=== PATIENT | female | born 1935 | race Caucasian/White ===

== ENCOUNTER 2017-04-07 11:12 | Inpatient (IN) | payer MEDICARE, OTHER ==
[~2017-04-07] VITALS: Ht 162.6 cm; Wt 92.2 kg
[~2017-04-07 11:12] MED LIST: ASPI-496 PO; ATOR20TA9 PO; CARV3.122 PO; CHOL10003 PO; HYDR-3138 PO; LEVO150T PO; LISI-170 PO; MULT-717 PO; POLY17PO5 PO
[2017-04-07] MEDS ORDERED: SODIUM CHLORIDE 0.9% 1,000 ML IV ONE (11:32)
[2017-04-07] MEDS ORDERED: DICL100G8 TP (11:47)
[2017-04-07] MEDS ORDERED: ALBU90AE INH (11:47)
[2017-04-07] MEDS ORDERED: SODIUM CHLORIDE FLUSH 10ML SYR IVF ONE (12:00)
[2017-04-07 12:06] LABS: ASPARTATE AMINO TRANSFERASE 27 U/L (15-37); BLOOD UREA NITROGEN 13 mg/dL (7-18)
[2017-04-07] MEDS ORDERED: CEFTAROLINE 600 MG in SODIUM CHLORIDE 0.9% 100 ML IV ONE (13:30)
[2017-04-07] MEDS ORDERED: ENALAPRILAT 1.25 MG/ML, 2ML IVPush PRN (14:30)
[2017-04-07] MEDS ORDERED: BISACODYL 10 MG SUPP PR PRN (14:30)
[2017-04-07] MEDS ORDERED: ONDANSETRON 2MG/ML, 2ML IVPush PRN (14:30)
[2017-04-07] MEDS ORDERED: VANCOMYCIN PER PHARMACY MC PRN (14:30)
[2017-04-07] MEDS ORDERED: LABETALOL 5MG/ML, 20ML IVPush PRN (14:30)
[2017-04-07] MEDS ORDERED: ACETAMINOPHEN 325 MG TABLET PO PRN (14:30)
[2017-04-07] MEDS: morphine SULFATE 10 MG/ML, 1ML IVPush PRN ×2 (15:00→16:03)
[2017-04-07] MEDS ORDERED: PHARMACOKINETIC MONITORING MC PRN (15:00)
[2017-04-07] MEDS: HYDROcodone/APAP 5/325 TABLET PO PRN ×2 (18:39→22:54)
[2017-04-07 19:08] VITALS: BP 153/80
[2017-04-07] MEDS: CEFTRIAXONE PMX 1GM/50ML 50 ML IV SCH (19:51)
[2017-04-07] MEDS: CARVEDILOL 3.125 MG TABLET PO SCH (21:30)
[2017-04-07] MEDS: ATORVASTATIN 20 MG TABLET PO SCH (21:30)
[2017-04-07] MEDS: VANCOMYCIN 1,700 MG in SODIUM CHLORIDE 0.9% 250 ML IV SCH (21:30)
[2017-04-08 02:00] VITALS: BP 111/64
[2017-04-08] MEDS: LEVOTHYROXINE 150 MCG TABLET PO SCH (05:58)
[2017-04-08] MEDS: HYDROcodone/APAP 5/325 TABLET PO PRN ×3 (05:58→18:34)
[2017-04-08 06:19] LABS: ASPARTATE AMINO TRANSFERASE 23 U/L (15-37); BLOOD UREA NITROGEN 16 mg/dL (7-18)
[2017-04-08 07:03] VITALS: BP 120/68
[2017-04-08] MEDS: CARVEDILOL 3.125 MG TABLET PO SCH ×2 (10:09→20:20)
[2017-04-08] MEDS: LISINOPRIL 20 MG TABLET PO SCH (10:09)
[2017-04-08] MEDS: SENNA/DOCUSATE TABLET PO SCH (10:09)
[2017-04-08 14:33] VITALS: BP 126/72
[2017-04-08 19:55] VITALS: BP 117/76
[2017-04-08] MEDS: ATORVASTATIN 20 MG TABLET PO SCH (20:20)
[2017-04-08] MEDS: CEFTRIAXONE PMX 1GM/50ML 50 ML IV SCH (20:20)
[2017-04-09] MEDS: HYDROcodone/APAP 5/325 TABLET PO PRN ×4 (00:28→18:43)
[2017-04-09 01:00] VITALS: BP 128/77
[2017-04-09 06:06] LABS: BLOOD UREA NITROGEN 17 mg/dL (7-18)
[2017-04-09] MEDS: LEVOTHYROXINE 150 MCG TABLET PO SCH (06:11)
[2017-04-09 08:32] VITALS: BP 140/66
[2017-04-09] MEDS: SENNA/DOCUSATE TABLET PO SCH (09:00)
[2017-04-09] MEDS: VANCOMYCIN 1,700 MG in SODIUM CHLORIDE 0.9% 250 ML IV SCH (09:14)
[2017-04-09] MEDS: CARVEDILOL 3.125 MG TABLET PO SCH ×2 (09:15→20:17)
[2017-04-09] MEDS: LISINOPRIL 20 MG TABLET PO SCH (09:15)
[2017-04-09 14:42] VITALS: BP 114/72
[2017-04-09] MEDS: ATORVASTATIN 20 MG TABLET PO SCH (20:17)
[2017-04-09] MEDS: CEFTRIAXONE PMX 1GM/50ML 50 ML IV SCH (20:18)
[2017-04-09 20:51] VITALS: BP 116/61
[2017-04-10 01:08] VITALS: BP 117/70
[2017-04-10] MEDS: HYDROcodone/APAP 5/325 TABLET PO PRN (01:51)
[2017-04-10] MEDS: LEVOTHYROXINE 150 MCG TABLET PO SCH (05:29)
[2017-04-10 06:23] LABS: ASPARTATE AMINO TRANSFERASE 20 U/L (15-37); BLOOD UREA NITROGEN 13 mg/dL (7-18)
[2017-04-10] MEDS ORDERED: PROPOFOL 10 MG/ML, 20ML ONE (07:36)
[2017-04-10] MEDS ORDERED: ROCURONIUM 10 MG/ML ONE (07:36)
[2017-04-10] MEDS ORDERED: ONDANSETRON 2MG/ML, 2ML ONE (07:36)
[2017-04-10] MEDS ORDERED: OXYcodone 5 MG/5 ML ORAL.SOL UDC PO PRN (08:30)
[2017-04-10] MEDS ORDERED: MIDAZOLAM 1 MG/ML, 2ML IV PRN (08:30)
[2017-04-10] MEDS ORDERED: ONDANSETRON 2MG/ML, 2ML IVPush PRN (08:30)
[2017-04-10] MEDS ORDERED: FENTANYL PF 100 MCG/2ML IV PRN (08:30)
[2017-04-10] MEDS ORDERED: ACETAMINOPHEN 325 MG TABLET PO PRN (08:30)
[2017-04-10] MEDS: CARVEDILOL 3.125 MG TABLET PO SCH ×2 (09:00→20:51)
[2017-04-10] MEDS: LISINOPRIL 20 MG TABLET PO SCH (09:00)
[2017-04-10] MEDS: SENNA/DOCUSATE TABLET PO SCH (09:00)
[2017-04-10] MEDS ORDERED: HYDROmorphone 2 MG/ML, 1ML ONE (11:38)
[2017-04-10] MEDS: HYDROmorphone 1 MG/ML, 1ML IV PRN ×2 (11:55→12:15)
[2017-04-10 13:05] VITALS: BP 133/83
[2017-04-10] MEDS: D5%-0.9% NACL+KCL 20MEQ 1,000 ML IV SCH (15:48)
[2017-04-10 20:36] VITALS: BP 147/74
[2017-04-10] MEDS: CEFTRIAXONE PMX 1GM/50ML 50 ML IV SCH (20:41)
[2017-04-10] MEDS: ATORVASTATIN 20 MG TABLET PO SCH (22:00)
[2017-04-10] MEDS: VANCOMYCIN 1,700 MG in SODIUM CHLORIDE 0.9% 250 ML IV SCH (22:00)
[2017-04-10 23:53] VITALS: BP 119/55
[2017-04-11 02:46] VITALS: BP 110/47
[2017-04-11] MEDS: D5%-0.9% NACL+KCL 20MEQ 1,000 ML IV SCH (03:54)
[2017-04-11 05:17] LABS: BLOOD UREA NITROGEN 15 mg/dL (7-18)
[2017-04-11] MEDS: LEVOTHYROXINE 150 MCG TABLET PO SCH (07:18)
[2017-04-11 07:22] VITALS: BP 108/64
[2017-04-11 07:38] VITALS: BP 136/66
[2017-04-11] MEDS: SENNA/DOCUSATE TABLET PO SCH (08:13)
[2017-04-11] MEDS: CARVEDILOL 3.125 MG TABLET PO SCH ×2 (08:13→23:37)
[2017-04-11] MEDS: LISINOPRIL 20 MG TABLET PO SCH (08:13)
[2017-04-11] MEDS: HYDROcodone/APAP 5/325 TABLET PO PRN ×3 (12:31→23:37)
[2017-04-11] MEDS ORDERED: DIAZEPAM 5 MG TABLET ONE (13:04)
[2017-04-11 14:05] VITALS: BP 99/44
[2017-04-11] MEDS: DIAZEPAM 5 MG/ML, 2ML IV PRN (18:06)
[2017-04-11 19:44] VITALS: BP 101/64
[2017-04-11] MEDS: DOCUSATE 100 MG CAPSULE PO PRN (23:37)
[2017-04-11] MEDS: ATORVASTATIN 20 MG TABLET PO SCH (23:38)
[2017-04-11] MEDS: CEFTRIAXONE PMX 1GM/50ML 50 ML IV SCH (23:40)
[2017-04-12 01:00] VITALS: BP 139/83
[2017-04-12] MEDS: DIAZEPAM 5 MG/ML, 2ML IV PRN ×3 (03:41→20:48)
[2017-04-12] MEDS: HYDROcodone/APAP 5/325 TABLET PO PRN ×5 (04:11→22:18)
[2017-04-12 06:07] LABS: BLOOD UREA NITROGEN 16 mg/dL (7-18)
[2017-04-12] MEDS: LEVOTHYROXINE 150 MCG TABLET PO SCH (07:12)
[2017-04-12] MEDS: VANCOMYCIN 1,700 MG in SODIUM CHLORIDE 0.9% 250 ML IV SCH (08:26)
[2017-04-12] MEDS: SENNA/DOCUSATE TABLET PO SCH (09:00)
[2017-04-12 09:09] VITALS: BP 133/47
[2017-04-12] MEDS: CHOLECALCIFEROL 1,000 UNIT TABLET PO SCH (09:49)
[2017-04-12] MEDS: CARVEDILOL 3.125 MG TABLET PO SCH ×2 (09:49→20:34)
[2017-04-12] MEDS: LISINOPRIL 20 MG TABLET PO SCH (09:49)
[2017-04-12] MEDS: MULTIVITAMIN 1 TABLET PO SCH (09:49)
[2017-04-12] MEDS: POLYETHYLENE GLYCOL 17 GM PACKET PO PRN (09:53)
[2017-04-12 13:48] VITALS: BP 135/61
[2017-04-12] MEDS: ATORVASTATIN 20 MG TABLET PO SCH (20:34)
[2017-04-12] MEDS: CEFTRIAXONE PMX 1GM/50ML 50 ML IV SCH (20:35)
[2017-04-12] MEDS: DOCUSATE 100 MG CAPSULE PO PRN (20:36)
[2017-04-12 21:14] VITALS: BP 112/68
[2017-04-13 01:08] VITALS: BP 99/63
[2017-04-13] MEDS: HYDROcodone/APAP 5/325 TABLET PO PRN ×6 (02:24→23:06)
[2017-04-13 04:05] VITALS: BP 103/65
[2017-04-13] MEDS: LEVOTHYROXINE 150 MCG TABLET PO SCH (06:24)
[2017-04-13 07:54] VITALS: BP 109/67
[2017-04-13] MEDS: SENNA/DOCUSATE TABLET PO SCH (08:53)
[2017-04-13] MEDS: CHOLECALCIFEROL 1,000 UNIT TABLET PO SCH (08:53)
[2017-04-13] MEDS: MULTIVITAMIN 1 TABLET PO SCH (08:53)
[2017-04-13] MEDS: CARVEDILOL 3.125 MG TABLET PO SCH ×2 (08:54→20:30)
[2017-04-13] MEDS: POLYETHYLENE GLYCOL 17 GM PACKET PO PRN (09:40)
[2017-04-13 14:39] VITALS: BP 114/66
[2017-04-13] MEDS: LISINOPRIL 20 MG TABLET PO SCH (15:01)
[2017-04-13] MEDS: DIAZEPAM 5 MG/ML, 2ML IV PRN (17:35)
[2017-04-13 19:37] VITALS: BP 114/71
[2017-04-13] MEDS: CEFTRIAXONE PMX 1GM/50ML 50 ML IV SCH (20:30)
[2017-04-13] MEDS: ATORVASTATIN 20 MG TABLET PO SCH (20:30)
[2017-04-14] MEDS: HYDROcodone/APAP 5/325 TABLET PO PRN ×6 (02:45→23:35)
[2017-04-14 03:09] VITALS: BP_SYST 111; BP_SYST 95; BP_DIAS 36; BP_DIAS 44
[2017-04-14 05:29] LABS: BLOOD UREA NITROGEN 18 mg/dL (7-18)
[2017-04-14] MEDS: SENNA/DOCUSATE TABLET PO SCH (07:38)
[2017-04-14] MEDS: LISINOPRIL 20 MG TABLET PO SCH (07:39)
[2017-04-14] MEDS: CHOLECALCIFEROL 1,000 UNIT TABLET PO SCH (07:39)
[2017-04-14] MEDS: MULTIVITAMIN 1 TABLET PO SCH (07:39)
[2017-04-14] MEDS: LEVOTHYROXINE 150 MCG TABLET PO SCH (07:39)
[2017-04-14] MEDS: CARVEDILOL 3.125 MG TABLET PO SCH ×2 (07:39→19:50)
[2017-04-14 07:40] VITALS: BP 114/60
[2017-04-14] MEDS ORDERED: MAGNESIUM HYDROXIDE 8%, 30ML UDC PO PRN (11:30)
[2017-04-14 13:48] VITALS: BP 128/58
[2017-04-14 19:09] VITALS: BP 106/67
[2017-04-14] MEDS: CEFTRIAXONE PMX 1GM/50ML 50 ML IV SCH (19:49)
[2017-04-14] MEDS: ATORVASTATIN 20 MG TABLET PO SCH (19:49)
[2017-04-15 02:08] VITALS: BP 95/60
[2017-04-15] MEDS: HYDROcodone/APAP 5/325 TABLET PO PRN ×5 (03:44→20:55)
[2017-04-15 06:24] LABS: BLOOD UREA NITROGEN 23 mg/dL (7-18)
[2017-04-15] MEDS: LEVOTHYROXINE 150 MCG TABLET PO SCH (06:40)
[2017-04-15 07:00] VITALS: BP 122/71
[2017-04-15] MEDS: CHOLECALCIFEROL 1,000 UNIT TABLET PO SCH (07:35)
[2017-04-15] MEDS: SENNA/DOCUSATE TABLET PO SCH (07:36)
[2017-04-15] MEDS: MULTIVITAMIN 1 TABLET PO SCH (07:36)
[2017-04-15] MEDS: CARVEDILOL 3.125 MG TABLET PO SCH ×2 (07:41→20:56)
[2017-04-15 07:42] VITALS: BP 124/50
[2017-04-15] MEDS: LISINOPRIL 20 MG TABLET PO SCH (09:00)
[2017-04-15] MEDS: DIAZEPAM 5 MG/ML, 2ML IV PRN (11:26)
[2017-04-15 13:05] VITALS: BP 108/68
[2017-04-15 20:15] VITALS: BP 100/53
[2017-04-15] MEDS: CEFTRIAXONE 1,000 MG in SODIUM CHLORIDE 0.9% 50 ML IVPB SCH (20:54)
[2017-04-15] MEDS: ATORVASTATIN 20 MG TABLET PO SCH (20:55)
[2017-04-16] MEDS: HYDROcodone/APAP 5/325 TABLET PO PRN ×6 (01:25→21:35)
[2017-04-16 04:35] VITALS: BP 116/69
[2017-04-16] MEDS: LEVOTHYROXINE 150 MCG TABLET PO SCH (05:41)
[2017-04-16 06:14] LABS: BLOOD UREA NITROGEN 25 mg/dL (7-18)
[2017-04-16 07:18] VITALS: BP 116/58
[2017-04-16] MEDS: CHOLECALCIFEROL 1,000 UNIT TABLET PO SCH (08:41)
[2017-04-16] MEDS: SENNA/DOCUSATE TABLET PO SCH ×2 (08:41→08:44)
[2017-04-16] MEDS: CARVEDILOL 3.125 MG TABLET PO SCH ×2 (08:41→20:16)
[2017-04-16] MEDS: MULTIVITAMIN 1 TABLET PO SCH (08:41)
[2017-04-16] MEDS ORDERED: DIAZEPAM 5 MG TABLET PO PRN (09:00)
[2017-04-16 13:11] VITALS: BP 131/66
[2017-04-16] MEDS: LISINOPRIL 20 MG TABLET PO SCH (13:32)
[2017-04-16 19:00] VITALS: BP 99/62
[2017-04-16] MEDS: CEFTRIAXONE 1,000 MG in SODIUM CHLORIDE 0.9% 50 ML IVPB SCH (20:16)
[2017-04-16] MEDS: ATORVASTATIN 20 MG TABLET PO SCH (20:16)
[2017-04-17] MEDS: HYDROcodone/APAP 5/325 TABLET PO PRN ×6 (01:56→21:36)
[2017-04-17 02:19] VITALS: BP 102/41
[2017-04-17 05:33] LABS: BLOOD UREA NITROGEN 28 mg/dL (7-18)
[2017-04-17] MEDS: LEVOTHYROXINE 150 MCG TABLET PO SCH (05:43)
[2017-04-17 07:21] VITALS: BP 112/70
[2017-04-17] MEDS: CARVEDILOL 3.125 MG TABLET PO SCH ×2 (09:36→21:37)
[2017-04-17] MEDS: MULTIVITAMIN 1 TABLET PO SCH (09:36)
[2017-04-17] MEDS: LISINOPRIL 20 MG TABLET PO SCH (09:36)
[2017-04-17] MEDS: SENNA/DOCUSATE TABLET PO SCH (09:37)
[2017-04-17] MEDS: CHOLECALCIFEROL 1,000 UNIT TABLET PO SCH (09:37)
[2017-04-17] MEDS ORDERED: POLY17PO5 PO (11:01)
[2017-04-17] MEDS ORDERED: CHOL10003 PO (11:01)
[2017-04-17] MEDS ORDERED: MULT1TAB60 PO (11:01)
[2017-04-17 13:37] VITALS: BP 119/69
[2017-04-17] MEDS: CEFAZOLIN PMX 2GM/50ML 50 ML IV SCH (17:42)
[2017-04-17 18:43] VITALS: BP 100/64
[2017-04-17] MEDS: ATORVASTATIN 20 MG TABLET PO SCH (21:36)
[2017-04-18] MEDS: CEFAZOLIN PMX 2GM/50ML 50 ML IV SCH ×3 (01:31→17:41)
[2017-04-18] MEDS: HYDROcodone/APAP 5/325 TABLET PO PRN ×6 (01:31→21:35)
[2017-04-18 01:47] VITALS: BP 127/62
[2017-04-18 05:25] LABS: ASPARTATE AMINO TRANSFERASE 66 U/L (15-37); BLOOD UREA NITROGEN 28 mg/dL (7-18)
[2017-04-18] MEDS: LEVOTHYROXINE 150 MCG TABLET PO SCH (05:29)
[2017-04-18 07:07] VITALS: BP 128/56
[2017-04-18] MEDS: MULTIVITAMIN 1 TABLET PO SCH (09:57)
[2017-04-18] MEDS: LISINOPRIL 20 MG TABLET PO SCH (09:57)
[2017-04-18] MEDS: CHOLECALCIFEROL 1,000 UNIT TABLET PO SCH (09:57)
[2017-04-18] MEDS: CARVEDILOL 3.125 MG TABLET PO SCH ×2 (09:58→21:35)
[2017-04-18] MEDS: SENNA/DOCUSATE TABLET PO SCH (10:02)
[2017-04-18 15:34] VITALS: BP 86/44
[2017-04-18 17:11] VITALS: BP 116/51
[2017-04-18 20:58] VITALS: BP 102/53
[2017-04-18] MEDS: ATORVASTATIN 20 MG TABLET PO SCH (21:35)
[2017-04-19] MEDS: HYDROcodone/APAP 5/325 TABLET PO PRN ×3 (01:24→09:30)
[2017-04-19] MEDS: CEFAZOLIN PMX 2GM/50ML 50 ML IV SCH ×2 (01:24→09:29)
[2017-04-19 02:45] VITALS: BP 102/48
[2017-04-19] MEDS: LEVOTHYROXINE 150 MCG TABLET PO SCH (05:28)
[2017-04-19 05:29] LABS: BLOOD UREA NITROGEN 30 mg/dL (7-18)
[2017-04-19] MEDS: SENNA/DOCUSATE TABLET PO SCH (09:00)
[2017-04-19] MEDS: MULTIVITAMIN 1 TABLET PO SCH (09:29)
[2017-04-19] MEDS: CHOLECALCIFEROL 1,000 UNIT TABLET PO SCH (09:29)
[2017-04-19] MEDS: LISINOPRIL 20 MG TABLET PO SCH (09:29)
[2017-04-19] MEDS: CARVEDILOL 3.125 MG TABLET PO SCH (09:29)
[2017-04-19] MEDS ORDERED: CEFA1VIA2 IV (09:36)
[2017-04-19 09:41] VITALS: BP 112/56
== END 2017-04-19 11:48 | DRG 515 ==
LOC: ED 13:07 → EDIP 13:30 → 3NE 14:25 → 4NOR 04-10 12:28
PROVIDERS: ADMIT Internal Medicine; ATTEND Internal Medicine
PROC: 01NR0ZZ Release Sacral Nerve, Open Approach (ICD-10-PCS; 2017-04-10)
PROC: 01NB0ZZ Release Lumbar Nerve, Open Approach (ICD-10-PCS; principal; 2017-04-10 07:30)
DX: M48.06 Spinal stenosis, lumbar region (principal); E43 Unspecified severe protein-calorie malnutrition; I69.354 Hemiplegia and hemiparesis following cerebral infarction affecting left non-dominant side; E87.1 Hypo-osmolality and hyponatremia; M54.16 Radiculopathy, lumbar region; L89.150 Pressure ulcer of sacral region, unstageable; D64.9 Anemia, unspecified; E03.9 Hypothyroidism, unspecified; E78.5 Hyperlipidemia, unspecified; G89.29 Other chronic pain; I10 Essential (primary) hypertension; I73.9 Peripheral vascular disease, unspecified; R33.9 Retention of urine, unspecified; Z66 Do not resuscitate; Z96.643 Presence of artificial hip joint, bilateral; Z96.652 Presence of left artificial knee joint; E66.9 Obesity, unspecified; D63.8 Anemia in other chronic diseases classified elsewhere; Z74.01 Bed confinement status; Z79.82 Long term (current) use of aspirin; Z79.899 Other long term (current) drug therapy; Z88.0 Allergy status to penicillin; Z88.2 Allergy status to sulfonamides; Z88.5 Allergy status to narcotic agent; Z68.34 Body mass index [BMI] 34.0-34.9, adult
CPT/HCPCS: 36415; 71010; 72100; 80048; 80053; 80202; 82040; 83735; 84443; 85025; 85610; 85730; 87070; 87077; 87186; 87205; 93005; 96360; J0690; J0696; J0712; J1170; J2250; J2270; J2405; J2704; J3010; J3360; J3370; J3480; J7030; J7050

== ENCOUNTER 2019-04-14 15:26 | Inpatient (IN) | payer MEDICARE ==
[~2019-04-14] VITALS: Ht 162.6 cm; Wt 86.0 kg
[~2019-04-14 15:26] MED LIST changes: +ALBU90AE INH; +ATOR20TA37 PO; -ATOR20TA9 PO; +CEFA1VIA2 IV; +DICL100G19 TP; -HYDR-3138 PO; +HYDR-3237 PO; +MULT1TAB60 PO
--- NOTE | 2019-04-14 15:26 | NUR ---
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 Drainage and chills noted on Monday.
--- NOTE | 2019-04-14 15:30 | NUR ---
Dr. Zuniga at bedside to evaluate pt.
[2019-04-14] MEDS ORDERED: CEFTRIAXONE PMX 1GM/50ML 50 ML IV ONE (16:30)
[2019-04-14] MEDS ORDERED: VANCOMYCIN PER PHARMACY MC PRN ×2 (16:30→17:30)
[2019-04-14] MEDS ORDERED: VANCOMYCIN 1,700 MG in SODIUM CHLORIDE 0.9% 250 ML IV ONE (16:30)
--- NOTE | 2019-04-14 16:33 | NUR ---
Lab at bedside for BC draw. Pt's family members now at bedside.
[2019-04-14 17:00] LABS: BASOPHILS # (AUTO) 0.02 x10^3/uL (0-0.1); BASOPHILS % (AUTO) 0 % (0-1); EOSINOPHILS # (AUTO) 0.01 x10^3/uL (0-0.4); EOSINOPHILS % (AUTO) 0 % (1-7); LYMPHOCYTES # (AUTO) 0.51 x10^3/uL (1-3.4); LYMPHOCYTES % (AUTO) 3 % (22-44); MD NO; MEAN CORPUSCULAR HEMOGLOBIN 33.5 pg (27.0-34.8); MEAN CORPUSCULAR HGB CONC 32.9 g/dL (32.4-35.8); MEAN PLATELET VOLUME 8.1 fL (7.4-10.4); MONOCYTES % (AUTO) 6 % (2-9); NEUTROPHILS # (AUTO) 15.51 x10^3/uL (1.8-6.8); NEUTROPHILS % (AUTO) 91 % (42-75); PLATELET COUNT 198 x10^3/uL (130-400); RED BLOOD COUNT 3.87 x10^6/uL (3.82-5.3); RED CELL DISTRIBUTION WIDTH 12.3 % (9.6-15.2)
[2019-04-14 17:13] LABS: ALBUMIN 3.1 g/dL (3.4-5.0); ANION GAP 8 mmol/L (5-15); CALCIUM 9.1 mg/dL (8.5-10.1); CHLORIDE 103 mmol/L (98-107)
[2019-04-14 17:14] LABS: CREATININE 0.88 mg/dL (0.55-1.02)
--- NOTE | 2019-04-14 17:17 | NUR ---
IV ABX started after 2 sets of blood cultures drawn and armband noted.
--- NOTE | 2019-04-14 17:21 | NUR ---
Upon MD arrival in to room to evaluate pt, pt's HR noted to have increased from 90s to 120s. EKG done.
[2019-04-14] MEDS ORDERED: hydrALAzine 20 MG/ML, 1ML IVPush PRN (17:30)
[2019-04-14] MEDS ORDERED: OXYcodone IR 5MG TABLET PO PRN (17:30)
[2019-04-14] MEDS ORDERED: SODIUM CHLORIDE 0.9% 1,000ML IVBOLUS ONE (17:30)
[2019-04-14] MEDS ORDERED: ONDANSETRON 2MG/ML, 2ML IVPush PRN ×2 (17:30→21:30)
[2019-04-14 17:44] LABS: INTERNATIONAL NORMALIZED RATIO 1.03 (0.93-1.1); PROTHROMBIN TIME 10.8 Seconds (9.6-11.5)
--- NOTE | 2019-04-14 18:04 | NUR ---
Telephone SBAR report given to R[place]ia, OR. Pt and family made aware of plan to go to OR, Dr. Tran at bedside to discuss surgery. Pt returned to NSR, rate in the 90s, all MDs aware of episode of increased HR and plan for NS bolus and artur-operative monitoring.
[2019-04-14] MEDS ORDERED: BUPIVACAINE/PF-EPI 0.5% 1:200K ONE (18:14)
--- NOTE | 2019-04-14 18:15 | NUR ---
Pt to OR at this time, with tech.
[2019-04-14] MEDS ORDERED: FENTANYL PF 100 MCG/2ML ONE (18:17)
[2019-04-14] MEDS ORDERED: MEPERIDINE/PF 25MG/0.5ML IVPush PRN (19:00)
[2019-04-14] MEDS ORDERED: OXYcodone 5 MG/5 ML ORAL.SOL UDC PO PRN (19:00)
[2019-04-14] MEDS ORDERED: PROCHLORPERAZINE 5 MG/ML, 2ML IV PRN (19:00)
[2019-04-14] MEDS ORDERED: hydrALAzine 20 MG/ML, 1ML IV PRN (19:00)
[2019-04-14] MEDS ORDERED: LABETALOL 5MG/ML, 20ML IV PRN (19:00)
[2019-04-14] MEDS ORDERED: HALOPERIDOL 5 MG/ML IV PRN (19:00)
[2019-04-14] MEDS ORDERED: PROMETHAZINE 25 MG/ML, 1ML IV PRN (19:00)
[2019-04-14] MEDS ORDERED: DIPHENHYDRAMINE 50 MG/ML, 1ML IVPush PRN (19:00)
[2019-04-14] MEDS ORDERED: HYDROmorphone 2 MG/ML, 1ML IVPush PRN (19:00)
[2019-04-14] MEDS ORDERED: METOPROLOL 1 MG/ML, 5ML IV PRN (19:00)
[2019-04-14] MEDS ORDERED: FENTANYL PF 100 MCG/2ML IV PRN (19:00)
[2019-04-14] MEDS ORDERED: SUCCINYLCHOLINE 20 MG/ML, 10ML ONE (19:30)
[2019-04-14] MEDS ORDERED: NEOSTIGMINE 1 MG/ML, 10ML ONE (19:30)
[2019-04-14] MEDS ORDERED: ROCURONIUM 10MG/ML,5ML ONE (19:30)
[2019-04-14] MEDS ORDERED: PROPOFOL 10 MG/ML, 20ML ONE (19:30)
[2019-04-14] MEDS ORDERED: ONDANSETRON 2MG/ML, 2ML ONE (19:30)
[2019-04-14] MEDS ORDERED: CEFAZOLIN 1,000 MG ONE (19:30)
[2019-04-14] MEDS ORDERED: DEXAMETHASONE 4 MG/ML, 1ML ONE (19:30)
[2019-04-14] MEDS ORDERED: GLYCOPYRROLATE 0.2MG/1ML, 5ML ONE (19:30)
[2019-04-14] MEDS ORDERED: ACETAMINOPHEN 650 MG/20.3 ML UDC ONE (19:57)
[2019-04-14] MEDS ORDERED: OXYcodone 5 MG/5 ML ORAL.SOL UDC ONE (19:57)
[2019-04-14 20:45] VITALS: BP 101/52
[2019-04-14] MEDS ORDERED: CARVEDILOL 3.125 MG TABLET PO SCH (21:00)
[2019-04-14] MEDS: ATORVASTATIN 20 MG TABLET PO SCH (21:00)
[2019-04-14] MEDS ORDERED: PHARMACOKINETIC MONITORING MC PRN (21:30)
[2019-04-14] MEDS ORDERED: PHARMACOKINETIC CONSULTATION MC ONE (21:30)
[2019-04-14] MEDS ORDERED: morphine SULFATE 10 MG/ML, 1ML IVPush PRN (21:30)
[2019-04-14] MEDS: CEFTRIAXONE PMX 2GM/50ML 50 ML IV SCH (21:58)
[2019-04-15 00:14] VITALS: BP 102/64
[2019-04-15] MEDS: ACETAMINOPHEN 325 MG TABLET PO PRN ×2 (00:40→21:56)
[2019-04-15 03:59] VITALS: BP 97/61
[2019-04-15] MEDS: LEVOTHYROXINE 150 MCG TABLET PO SCH (05:52)
[2019-04-15 06:20] LABS: MEAN CORPUSCULAR HEMOGLOBIN 33.9 pg (27.0-34.8); MEAN CORPUSCULAR HGB CONC 33.3 g/dL (32.4-35.8); MEAN CORPUSCULAR VOLUME 101.8 fL (80-100); MEAN PLATELET VOLUME 8.2 fL (7.4-10.4); PLATELET COUNT 206 x10^3/uL (130-400); RED CELL DISTRIBUTION WIDTH 12.1 % (9.6-15.2)
[2019-04-15 06:40] LABS: CHLORIDE 103 mmol/L (98-107)
[2019-04-15 06:47] VITALS: BP 94/56
[2019-04-15 06:56] LABS: BASOPHILS # (AUTO) 0.01 x10^3/uL (0-0.1); BASOPHILS % (AUTO) 0 % (0-1); EOSINOPHILS % (AUTO) 0 % (1-7); LYMPHOCYTES # (AUTO) 0.44 x10^3/uL (1-3.4); LYMPHOCYTES % (AUTO) 3 % (22-44); MD SCAN; MONOCYTES # (AUTO) 0.26 x10^3/uL (0.2-0.8); MONOCYTES % (AUTO) 2 % (2-9); NEUTROPHILS # (AUTO) 14.54 x10^3/uL (1.8-6.8); NEUTROPHILS % (AUTO) 95 % (42-75)
[2019-04-15 06:58] LABS: ALANINE AMINOTRANSFERASE 26 U/L (12-78); ALBUMIN 2.5 g/dL (3.4-5.0); ALKALINE PHOSPHATASE 108 U/L (45-117); ANION GAP 10 mmol/L (5-15); BILIRUBIN,TOTAL 0.7 mg/dL (0.2-1.0); CALCIUM 8.4 mg/dL (8.5-10.1); CREATININE 1.11 mg/dL (0.55-1.02); TOTAL PROTEIN 6.1 g/dL (6.4-8.2)
[2019-04-15] MEDS: MULTIVITAMIN 1 TABLET PO SCH (08:13)
[2019-04-15] MEDS: CHOLECALCIFEROL 1,000 UNIT TABLET PO SCH (08:13)
[2019-04-15] MEDS ORDERED: LISINOPRIL 20 MG TABLET PO SCH (09:00)
[2019-04-15] MEDS ORDERED: morphine SULFATE 10 MG/ML, 1ML IVPush PRN (11:00)
[2019-04-15 12:22] VITALS: BP 101/67
[2019-04-15] MEDS: METOPROLOL TARTRATE 25 MG TABLET PO SCH ×2 (18:00→18:36)
[2019-04-15 18:33] VITALS: BP 129/66
[2019-04-15] MEDS: ATORVASTATIN 20 MG TABLET PO SCH (21:16)
[2019-04-15] MEDS: CEFTRIAXONE PMX 2GM/50ML 50 ML IV SCH (21:56)
[2019-04-16 02:13] VITALS: BP 143/74
[2019-04-16] MEDS ORDERED: VANCOMYCIN 1,700 MG in SODIUM CHLORIDE 0.9% 250 ML IV SCH (05:00)
[2019-04-16] MEDS: METOPROLOL TARTRATE 25 MG TABLET PO SCH (05:18)
[2019-04-16] MEDS: LEVOTHYROXINE 150 MCG TABLET PO SCH (05:18)
[2019-04-16 05:27] LABS: BASOPHILS # (AUTO) 0.01 x10^3/uL (0-0.1); BASOPHILS % (AUTO) 0 % (0-1); EOSINOPHILS % (AUTO) 0 % (1-7); LYMPHOCYTES # (AUTO) 1.02 x10^3/uL (1-3.4); LYMPHOCYTES % (AUTO) 7 % (22-44); MD NO; MEAN CORPUSCULAR HEMOGLOBIN 33.5 pg (27.0-34.8); MEAN CORPUSCULAR HGB CONC 33.1 g/dL (32.4-35.8); MEAN CORPUSCULAR VOLUME 101.2 fL (80-100); MEAN PLATELET VOLUME 8.1 fL (7.4-10.4); MONOCYTES # (AUTO) 0.61 x10^3/uL (0.2-0.8); MONOCYTES % (AUTO) 4 % (2-9); NEUTROPHILS % (AUTO) 89 % (42-75); PLATELET COUNT 264 x10^3/uL (130-400); RED BLOOD COUNT 3.73 x10^6/uL (3.82-5.3); RED CELL DISTRIBUTION WIDTH 12.3 % (9.6-15.2)
[2019-04-16 05:33] LABS: ALBUMIN 2.5 g/dL (3.4-5.0); ANION GAP 6 mmol/L (5-15); CALCIUM 8.7 mg/dL (8.5-10.1); CHLORIDE 102 mmol/L (98-107)
[2019-04-16 05:39] LABS: ALANINE AMINOTRANSFERASE 76 U/L (12-78); ALKALINE PHOSPHATASE 110 U/L (45-117); BILIRUBIN,TOTAL 0.2 mg/dL (0.2-1.0); CREATININE 0.88 mg/dL (0.55-1.02); TOTAL PROTEIN 6.2 g/dL (6.4-8.2)
[2019-04-16] MEDS ORDERED: DIPHENHYDRAMINE 25 MG CAPSULE ONE (06:43)
[2019-04-16] MEDS ORDERED: DIPHENHYDRAMINE 25 MG CAPSULE PO ONE (07:00)
[2019-04-16 07:22] VITALS: BP 140/70
[2019-04-16] MEDS: MULTIVITAMIN 1 TABLET PO SCH (08:17)
[2019-04-16] MEDS: CHOLECALCIFEROL 1,000 UNIT TABLET PO SCH (08:17)
[2019-04-16 12:54] VITALS: BP 129/63
[2019-04-16] MEDS: PINK BISMUTH 87.33 MG/5 ML ORAL SUSP PO PRN ×2 (16:26→21:26)
[2019-04-16] MEDS: CARVEDILOL 3.125 MG TABLET PO SCH (18:37)
[2019-04-16 19:36] VITALS: BP 144/80
[2019-04-16] MEDS: ACETAMINOPHEN 325 MG TABLET PO PRN (21:20)
[2019-04-16] MEDS: ATORVASTATIN 20 MG TABLET PO SCH (21:20)
[2019-04-16] MEDS: CEFTRIAXONE PMX 2GM/50ML 50 ML IV SCH (21:20)
[2019-04-17 02:54] VITALS: BP 139/68
[2019-04-17] MEDS: PINK BISMUTH 87.33 MG/5 ML ORAL SUSP PO PRN ×3 (03:45→19:47)
[2019-04-17] MEDS: LEVOTHYROXINE 150 MCG TABLET PO SCH (05:44)
[2019-04-17] MEDS: CARVEDILOL 3.125 MG TABLET PO SCH ×2 (05:45→17:54)
[2019-04-17 05:48] LABS: BASOPHILS # (AUTO) 0.02 x10^3/uL (0-0.1); BASOPHILS % (AUTO) 0 % (0-1); EOSINOPHILS # (AUTO) 0.12 x10^3/uL (0-0.4); EOSINOPHILS % (AUTO) 1 % (1-7); LYMPHOCYTES # (AUTO) 1.54 x10^3/uL (1-3.4); LYMPHOCYTES % (AUTO) 17 % (22-44); MD NO; MEAN CORPUSCULAR HEMOGLOBIN 33.6 pg (27.0-34.8); MEAN CORPUSCULAR HGB CONC 33.4 g/dL (32.4-35.8); MEAN CORPUSCULAR VOLUME 100.7 fL (80-100); MEAN PLATELET VOLUME 7.8 fL (7.4-10.4); MONOCYTES # (AUTO) 0.71 x10^3/uL (0.2-0.8); MONOCYTES % (AUTO) 8 % (2-9); NEUTROPHILS # (AUTO) 6.62 x10^3/uL (1.8-6.8); NEUTROPHILS % (AUTO) 73 % (42-75); PLATELET COUNT 287 x10^3/uL (130-400); RED BLOOD COUNT 3.77 x10^6/uL (3.82-5.3); RED CELL DISTRIBUTION WIDTH 12.7 % (9.6-15.2)
[2019-04-17 05:50] LABS: ALBUMIN 2.5 g/dL (3.4-5.0); ANION GAP 6 mmol/L (5-15); CALCIUM 8.8 mg/dL (8.5-10.1); CHLORIDE 107 mmol/L (98-107)
[2019-04-17 05:55] LABS: ALANINE AMINOTRANSFERASE 95 U/L (12-78); ALKALINE PHOSPHATASE 99 U/L (45-117); BILIRUBIN,TOTAL 0.4 mg/dL (0.2-1.0); TOTAL PROTEIN 5.8 g/dL (6.4-8.2)
[2019-04-17 07:15] VITALS: BP 131/62
[2019-04-17] MEDS: CHOLECALCIFEROL 1,000 UNIT TABLET PO SCH (08:00)
[2019-04-17] MEDS: MULTIVITAMIN 1 TABLET PO SCH (08:00)
[2019-04-17] MEDS ORDERED: LISINOPRIL 20 MG TABLET PO SCH (09:00)
[2019-04-17] MEDS ORDERED: VANCOMYCIN 1,700 MG in SODIUM CHLORIDE 0.9% 250 ML IV SCH ×2 (10:21→17:00)
[2019-04-17 12:56] VITALS: BP 139/68
[2019-04-17 17:52] VITALS: BP 134/76
[2019-04-17 19:07] VITALS: BP 125/73
[2019-04-17] MEDS: ATORVASTATIN 20 MG TABLET PO SCH (19:47)
[2019-04-17] MEDS: ACETAMINOPHEN 325 MG TABLET PO PRN (22:02)
[2019-04-18] MEDS: PINK BISMUTH 87.33 MG/5 ML ORAL SUSP PO PRN ×5 (01:05→21:34)
[2019-04-18 01:22] VITALS: BP 160/80
[2019-04-18] MEDS: LEVOTHYROXINE 150 MCG TABLET PO SCH (05:47)
[2019-04-18] MEDS: CARVEDILOL 3.125 MG TABLET PO SCH ×2 (05:47→17:09)
[2019-04-18] MEDS: CHOLECALCIFEROL 1,000 UNIT TABLET PO SCH (08:20)
[2019-04-18] MEDS: MULTIVITAMIN 1 TABLET PO SCH (08:21)
[2019-04-18 08:26] VITALS: BP 154/80
[2019-04-18 15:25] VITALS: BP 132/76
[2019-04-18 18:55] VITALS: BP 128/76
[2019-04-18] MEDS: ATORVASTATIN 20 MG TABLET PO SCH (21:34)
[2019-04-18] MEDS: ACETAMINOPHEN 325 MG TABLET PO PRN (21:34)
[2019-04-19 00:52] VITALS: BP 134/78
[2019-04-19] MEDS: CARVEDILOL 3.125 MG TABLET PO SCH ×2 (06:11→17:18)
[2019-04-19] MEDS: LEVOTHYROXINE 150 MCG TABLET PO SCH (06:12)
[2019-04-19 08:15] VITALS: BP 140/81
[2019-04-19] MEDS: MULTIVITAMIN 1 TABLET PO SCH (09:06)
[2019-04-19] MEDS: CHOLECALCIFEROL 1,000 UNIT TABLET PO SCH (09:07)
[2019-04-19] MEDS: ENOXAPARIN 30 MG/0.3 ML SQ SCH ×2 (09:07→20:12)
[2019-04-19 12:23] VITALS: BP 135/81
[2019-04-19 18:29] VITALS: BP 142/84
[2019-04-19] MEDS: ATORVASTATIN 20 MG TABLET PO SCH (20:12)
[2019-04-19] MEDS: ACETAMINOPHEN 325 MG TABLET PO PRN (20:23)
[2019-04-20] MEDS: ACETAMINOPHEN 325 MG TABLET PO PRN (01:35)
[2019-04-20 02:04] VITALS: BP 130/80
[2019-04-20] MEDS: LEVOTHYROXINE 150 MCG TABLET PO SCH (05:50)
[2019-04-20] MEDS: CARVEDILOL 3.125 MG TABLET PO SCH (05:50)
[2019-04-20 07:45] VITALS: BP_SYST 150; BP_SYST 152; BP_DIAS 76; BP_DIAS 82
[2019-04-20] MEDS: CHOLECALCIFEROL 1,000 UNIT TABLET PO SCH (08:04)
[2019-04-20] MEDS: MULTIVITAMIN 1 TABLET PO SCH (08:04)
[2019-04-20] MEDS: ENOXAPARIN 30 MG/0.3 ML SQ SCH (08:04)
== END 2019-04-20 12:20 | disposition home or self-care (01) | DRG 853 ==
LOC: ED 15:56 → EDIP 16:45 → 4NOR 20:35 → DCLOUNGE 04-20 12:10
PROVIDERS: ADMIT Hospitalist; ATTEND Hospitalist
PROC: 0JB90ZZ Excision of Buttock Subcutaneous Tissue and Fascia, Open Approach (ICD-10-PCS; principal; 2019-04-14 18:00)
DX: A41.9 Sepsis, unspecified organism (principal); E43 Unspecified severe protein-calorie malnutrition; M61.9 Calcification and ossification of muscle, unspecified; Z68.32 Body mass index [BMI] 32.0-32.9, adult; E03.9 Hypothyroidism, unspecified; E66.9 Obesity, unspecified; E78.00 Pure hypercholesterolemia, unspecified; E78.5 Hyperlipidemia, unspecified; I10 Essential (primary) hypertension; Z88.0 Allergy status to penicillin; Z88.6 Allergy status to analgesic agent; M41.9 Scoliosis, unspecified; Z88.8 Allergy status to other drugs, medicaments and biological substances; Z86.73 Personal history of transient ischemic attack (TIA), and cerebral infarction without residual deficits; Z87.01 Personal history of pneumonia (recurrent); Z96.643 Presence of artificial hip joint, bilateral; Z96.652 Presence of left artificial knee joint; G89.29 Other chronic pain; M54.9 Dorsalgia, unspecified
CPT/HCPCS: 36415; 71045; 80048; 80053; 80202; 82040; 83605; 85025; 85610; 85730; 87040; 87070; 87075; 87077; 87186; 87205; 88305; 93005; 96374; G0378; J0690; J0696; J1100; J1650; J2405; J2704; J2710; J3010; J3370; J0330; J7050; Q0163

== ENCOUNTER 2019-06-17 11:15 | Inpatient (IN) | payer MEDICARE ==
[~2019-06-17] VITALS: Ht 162.6 cm; Wt 88.6 kg
[2019-06-17] MEDS ORDERED: PLEASE ENTER HEIGHT AND WEIGHT MC SCH (11:30)
[2019-06-17] MEDS ORDERED: SODIUM CHLORIDE FLUSH 10ML SYR IVF ONE (11:30)
--- NOTE | 2019-06-17 11:47 | NUR ---
pt went to wound care clinic this am for routine treatment but had c/o sob and generalized weakness that started last monday. pt found to be bradycardic and sent to [facility] ed. pt in 3 degree hb and flown to this ed from [facility]. 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 pt is A&ox4, w/o distress, b/p wnl, on 2l o2 via nc. dr bowser (card.) to bedside [id number]
--- NOTE | 2019-06-17 12:02 | NUR ---
pt educated on poc and verbalizes understanding including npo
[2019-06-17 12:44] LABS: BASOPHILS # (AUTO) 0.03 x10^3/uL (0-0.1); BASOPHILS % (AUTO) 0 % (0-1); EOSINOPHILS # (AUTO) 0.06 x10^3/uL (0-0.4); EOSINOPHILS % (AUTO) 1 % (1-7); LYMPHOCYTES # (AUTO) 1.42 x10^3/uL (1-3.4); LYMPHOCYTES % (AUTO) 17 % (22-44); MD NO; MEAN CORPUSCULAR HEMOGLOBIN 32.2 pg (27.0-34.8); MEAN CORPUSCULAR HGB CONC 32.4 g/dL (32.4-35.8); MEAN CORPUSCULAR VOLUME 99.3 fL (80-100); MEAN PLATELET VOLUME 8.6 fL (7.4-10.4); MONOCYTES # (AUTO) 0.52 x10^3/uL (0.2-0.8); MONOCYTES % (AUTO) 6 % (2-9); NEUTROPHILS # (AUTO) 6.21 x10^3/uL (1.8-6.8); NEUTROPHILS % (AUTO) 75 % (42-75); PLATELET COUNT 211 x10^3/uL (130-400); RED BLOOD COUNT 3.64 x10^6/uL (3.82-5.3); RED CELL DISTRIBUTION WIDTH 13.4 % (9.6-15.2)
[2019-06-17 13:00] LABS: ANION GAP 6 mmol/L (5-15); CALCIUM 9.2 mg/dL (8.5-10.1); CHLORIDE 111 mmol/L (98-107); CREATININE 0.94 mg/dL (0.55-1.02)
[2019-06-17] MEDS ORDERED: HYDROcodone/APAP 5/325 TABLET PO PRN (13:00)
[2019-06-17] MEDS ORDERED: POLYETHYLENE GLYCOL 17 GM PACKET PO PRN (13:00)
[2019-06-17] MEDS ORDERED: ALBUTEROL SULFATE 2.5MG/0.5ML NEB PRN (13:00)
[2019-06-17 13:05] LABS: TROPONIN I < 0.015 ng/mL (0.000-0.045)
[2019-06-17] MEDS ORDERED: ATROPINE 0.4 MG/ML, 1ML IVPush PRN (13:30)
[2019-06-17 13:41] VITALS: BP 108/40
[2019-06-17 14:01] VITALS: BP 102/38
[2019-06-17] MEDS ORDERED: VANCOMYCIN PMX 1GM/200ML 200 ML IVPB ONE (15:30)
[2019-06-17] MEDS: D5%-0.45NACL+KCL 20MEQ 1,000 ML IV SCH (16:27)
[2019-06-17 17:58] LABS: TROPONIN I < 0.015 ng/mL (0.000-0.045)
[2019-06-17 18:38] LABS: MICROSCOPIC NOT IND
[2019-06-17] MEDS: ATORVASTATIN 20 MG TABLET PO SCH (21:09)
[2019-06-17 21:15] VITALS: BP 118/52
[2019-06-17] MEDS ORDERED: ATROPINE SYRINGE 0.1 MG/ML, 10ML IVPush PRN (23:30)
[2019-06-18 01:01] VITALS: BP 110/50
[2019-06-18 01:01] LABS: TROPONIN I < 0.015 ng/mL (0.000-0.045)
[2019-06-18 04:56] LABS: BASOPHILS # (AUTO) 0.03 x10^3/uL (0-0.1); BASOPHILS % (AUTO) 1 % (0-1); EOSINOPHILS # (AUTO) 0.15 x10^3/uL (0-0.4); EOSINOPHILS % (AUTO) 2 % (1-7); LYMPHOCYTES # (AUTO) 1.48 x10^3/uL (1-3.4); LYMPHOCYTES % (AUTO) 22 % (22-44); MD NO; MEAN CORPUSCULAR HEMOGLOBIN 33.5 pg (27.0-34.8); MEAN CORPUSCULAR HGB CONC 33.2 g/dL (32.4-35.8); MONOCYTES # (AUTO) 0.63 x10^3/uL (0.2-0.8); MONOCYTES % (AUTO) 9 % (2-9); NEUTROPHILS # (AUTO) 4.46 x10^3/uL (1.8-6.8); NEUTROPHILS % (AUTO) 66 % (42-75); PLATELET COUNT 202 x10^3/uL (130-400); RED BLOOD COUNT 3.34 x10^6/uL (3.82-5.3); RED CELL DISTRIBUTION WIDTH 13.9 % (9.6-15.2)
[2019-06-18] MEDS: LEVOTHYROXINE 150 MCG TABLET PO SCH (06:29)
[2019-06-18] MEDS: D5%-0.45NACL+KCL 20MEQ 1,000 ML IV SCH (06:29)
[2019-06-18] MEDS ORDERED: ALBUTEROL SULFATE 2.5MG/0.5ML NPPB PRN (06:30)
[2019-06-18 07:44] VITALS: BP 128/82
[2019-06-18 08:14] VITALS: BP 126/78
[2019-06-18 08:24] LABS: ANION GAP 6 mmol/L (5-15); CALCIUM 8.6 mg/dL (8.5-10.1); CHLORIDE 109 mmol/L (98-107); CREATININE 0.92 mg/dL (0.55-1.02)
[2019-06-18] MEDS: MULTIVITAMIN 1 TABLET PO SCH (09:00)
[2019-06-18] MEDS: CHOLECALCIFEROL 1,000 UNIT TABLET PO SCH (09:00)
[2019-06-18] MEDS: ASPIRIN 81 MG TABLET EC PO SCH (09:00)
[2019-06-18] MEDS: SODIUM CHLORIDE 0.9% 1,000 ML IV SCH ×2 (09:09→17:24)
[2019-06-18] MEDS ORDERED: MIDAZOLAM 1 MG/ML, 5ML ONE (12:56)
[2019-06-18] MEDS ORDERED: FENTANYL PF 250 MCG/5ML ONE (12:57)
[2019-06-18] MEDS ORDERED: LIDOCAINE 1%, 20ML ONE (12:57)
[2019-06-18] MEDS ORDERED: CEFAZOLIN 1,000 MG ONE (12:58)
[2019-06-18] MEDS ORDERED: CEFAZOLIN PMX 1GM/50ML 50 ML ONE (12:58)
[2019-06-18 15:00] VITALS: BP 122/76
[2019-06-18] MEDS ORDERED: HYDROcodone/APAP 5/325 TABLET PO PRN (15:00)
[2019-06-18] MEDS ORDERED: HOLD MEDICATION MC PRN (15:00)
[2019-06-18 19:57] VITALS: BP 141/71
[2019-06-18] MEDS: ATORVASTATIN 20 MG TABLET PO SCH (21:43)
[2019-06-18] MEDS: SODIUM CHLORIDE FLUSH 10ML SYR IVF SCH (21:44)
[2019-06-18] MEDS: CEFAZOLIN PMX 1GM/50ML 50 ML IVPB SCH (21:44)
[2019-06-18] MEDS: ACETAMINOPHEN 325 MG TABLET PO PRN (21:50)
[2019-06-19 01:38] VITALS: BP 118/55
[2019-06-19] MEDS: LEVOTHYROXINE 150 MCG TABLET PO SCH (05:50)
[2019-06-19] MEDS: CEFAZOLIN PMX 1GM/50ML 50 ML IVPB SCH ×2 (05:50→14:04)
[2019-06-19 07:50] VITALS: BP 134/71
[2019-06-19 08:29] LABS: BASOPHILS # (AUTO) 0.01 x10^3/uL (0-0.1); BASOPHILS % (AUTO) 0 % (0-1); EOSINOPHILS # (AUTO) 0.12 x10^3/uL (0-0.4); EOSINOPHILS % (AUTO) 2 % (1-7); LYMPHOCYTES # (AUTO) 0.85 x10^3/uL (1-3.4); LYMPHOCYTES % (AUTO) 13 % (22-44); MD NO; MEAN CORPUSCULAR HEMOGLOBIN 32.8 pg (27.0-34.8); MEAN CORPUSCULAR HGB CONC 33.1 g/dL (32.4-35.8); MEAN CORPUSCULAR VOLUME 99.1 fL (80-100); MEAN PLATELET VOLUME 8.1 fL (7.4-10.4); MONOCYTES % (AUTO) 9 % (2-9); NEUTROPHILS # (AUTO) 4.93 x10^3/uL (1.8-6.8); NEUTROPHILS % (AUTO) 76 % (42-75); PLATELET COUNT 215 x10^3/uL (130-400); RED CELL DISTRIBUTION WIDTH 13.5 % (9.6-15.2)
[2019-06-19 08:41] LABS: ANION GAP 5 mmol/L (5-15); CALCIUM 8.7 mg/dL (8.5-10.1); CHLORIDE 107 mmol/L (98-107); CREATININE 0.81 mg/dL (0.55-1.02)
[2019-06-19] MEDS ORDERED: CARVEDILOL 3.125 MG TABLET PO SCH (09:00)
[2019-06-19] MEDS: ASPIRIN 81 MG TABLET EC PO SCH (09:04)
[2019-06-19] MEDS: CHOLECALCIFEROL 1,000 UNIT TABLET PO SCH (09:04)
[2019-06-19] MEDS: MULTIVITAMIN 1 TABLET PO SCH (09:04)
[2019-06-19] MEDS: SODIUM CHLORIDE FLUSH 10ML SYR IVF SCH (09:05)
[2019-06-19] MEDS: ACETAMINOPHEN 325 MG TABLET PO PRN ×2 (09:55→15:26)
[2019-06-19 14:06] VITALS: BP 135/72
[2019-06-19] MEDS ORDERED: ACET325T26 PO (15:22)
== END 2019-06-19 18:04 | disposition home or self-care (01) | DRG 243 ==
LOC: ED 12:22 → 5SO 12:55 → ED 12:55 → 5SO 13:01
PROVIDERS: ADMIT Hospitalist; ATTEND Hospitalist
PROC: 02H63JZ Insertion of Pacemaker Lead into Right Atrium, Percutaneous Approach (ICD-10-PCS; principal; 2019-06-18)
PROC: 02HK3JZ Insertion of Pacemaker Lead into Right Ventricle, Percutaneous Approach (ICD-10-PCS; 2019-06-18)
PROC: 0JH606Z Insertion of Pacemaker, Dual Chamber into Chest Subcutaneous Tissue and Fascia, Open Approach (ICD-10-PCS; 2019-06-18)
DX: I44.2 Atrioventricular block, complete (principal); F11.20 Opioid dependence, uncomplicated; G89.29 Other chronic pain; M54.9 Dorsalgia, unspecified; E03.9 Hypothyroidism, unspecified; E11.9 Type 2 diabetes mellitus without complications; E78.5 Hyperlipidemia, unspecified; E87.5 Hyperkalemia; I10 Essential (primary) hypertension; Z66 Do not resuscitate; Z96.643 Presence of artificial hip joint, bilateral; Z96.652 Presence of left artificial knee joint; Z86.73 Personal history of transient ischemic attack (TIA), and cerebral infarction without residual deficits; Z87.891 Personal history of nicotine dependence; Z88.6 Allergy status to analgesic agent; Z88.1 Allergy status to other antibiotic agents; Z88.0 Allergy status to penicillin; Z88.2 Allergy status to sulfonamides
CPT/HCPCS: 33208; 36415; 71045; 80048; 81003; 83735; 84443; 84484; 85025; 93005; 93306; 99156; 99157; C1769; C1779; C1785; C1892; C1894; G0378; J0690; J2250; J3010; J3480; J7030